=== PATIENT | male | born 1990 | race African-American/Black ===

== ENCOUNTER 2020-09-17 15:28 | Emergency (ER) | payer OTHER ==
[~2020-09-17] VITALS: Ht 167.6 cm; Wt 86.2 kg
[2020-09-17 15:47] LABS: ABSOLUTE NEUTROPHILS 7.4 thou/uL (1.4-8.2); BASOPHILS 0.2 % (0.0-2.0); EOSINOPHILS 0.1 % (0.0-3.0); HEMATOCRIT 48.7 % (42.0-52.0); HEMOGLOBIN 16.7 gm/dL (14.0-18.0); LYMPHOCYTES 10.9 % (24.0-44.0); MCH 32.9 pg (26.0-34.0); MCHC 34.3 g/dL (28.0-37.0); MCV 95.7 fL (80.0-100.0); MONOCYTES 10.7 % (1.0-8.0); PLATELET COUNT 289 thou/uL (150-400); POLYS 78.1 % (36.0-66.0); RBC 5.09 mil/uL (4.50-6.00); RDW 12.5 % (10.5-14.5); WBC 9.5 thou/uL (4.0-11.0)
[2020-09-17 15:54] LABS: ANION GAP 20 mmol/L (7-16); BUN 25 mg/dL (7-18); CALCIUM 10.7 mg/dL (8.5-10.1); CHLORIDE 101 mmol/L (98-107); CO2 17 mmol/L (21-32); CREATININE 1.7 mg/dL (0.7-1.3); GLUCOSE 145 mg/dL (74-106); SODIUM 138 mmol/L (136-145)
[2020-09-17 15:55] LABS: POTASSIUM 3.9 mmol/L (3.5-5.1)
[2020-09-17 16:08] LABS: ALBUMIN 4.6 g/dL (3.4-5.0); DIRECT BILIRUBIN < 0.1 mg/dL (<0.1-0.2); LIPASE 103 U/L (73-393); SGOT 28 U/L (15-37); SGPT 23 U/L (16-63); TOTAL BILIRUBIN 0.7 mg/dL (0.2-1.0); TOTAL PROTEIN 9.5 g/dL (6.4-8.2)
[2020-09-17 18:09] VITALS: BP 116/59
[2020-09-17] MEDS ORDERED: ONDANSETRON HCL4 M2 PO (18:09)
== END 2020-09-17 18:09 | disposition home or self-care (01) ==
LOC: ER 15:28
PROVIDERS: Nurse Practitioner
DX: R11.2 Nausea with vomiting, unspecified (principal); F12.90 Cannabis use, unspecified, uncomplicated; R10.13 Epigastric pain; F17.210 Nicotine dependence, cigarettes, uncomplicated